=== PATIENT | female | born 1990 | race African-American/Black ===

== ENCOUNTER 2017-07-23 08:22 | Emergency (ER) | payer SELFPAY ==
[~2017-07-23] VITALS: Ht 167.6 cm; Wt 72.0 kg
[2017-07-23 08:24] VITALS: BP 105/64; PULSE 103; RESP 20; TEMP 102.7; O2SAT 99
[2017-07-23] MEDS ORDERED: DEXTLIQ (09:00)
[2017-07-23] MEDS ORDERED: IBUPROFEN 600 MG TAB PO ONE (09:15)
--- NOTE | 2017-07-23 09:30 | PD ---
HPI Chief Complaint: Fever Time Seen by Provider: 09:08 Travel History International Travel<30 days: No Contact w/Intl Traveler<30days: No Traveled to known affect area: No History of Present Illness HPI 27-year-old female came to the emergency room with history of fever, chills, body aches and cough since last night. She has brought her daughter and to be seen as well since she has symptoms of fever and cough as well. However the daughter has been sick for past 2 weeks and patient just became sick last night. She is a smoker. Patient had a temperature 102.5 in triage. She claims to be healthy otherwise. No history of nausea or vomiting. [facility] Past Medical History Narrative Medical List of her past medical, surgical, social and family history is reviewed from the nursing note. Medical History: Denies Significant Hx ?: Not LMP: 07/01/17 Past Surgical History Surgical History: No Previous Surgery Social History Alcohol Use: No Tobacco Use: No Substance Use: No Allergies-Medications (Allergen,Severity, Reaction): Coded Allergies: No Known Allergies (Unverified , 07/23/17) Comments No known drug allergies Reported Meds & Prescriptions Reported Meds & Active Scripts Active Tamiflu (Oseltamivir Phosphate) 75 Mg Cap 75 Mg PO BID 5 Days Reported Night Time Cold & Flu Liquid (Dm/Acetaminophen/Doxylamine) 15 Mg-325 Mg-6.25 Mg/ 15 Ml Liquid Narrative Medication List of her home medications reviewed from the nursing note. Review of Systems Except as stated in HPI: all other systems reviewed are Neg General / Constitutional: Positive: Fever, Chills Respiratory: Positive: Cough Musculoskeletal: Positive: Myalgias Physical Exam Narrative GENERAL: Awake, alert, moderate distress SKIN: Focused skin assessment warm/dry. HEAD: Atraumatic. Normocephalic. EYES: Pupils equal and round. No scleral icterus. No injection or drainage. ENT: No nasal bleeding or discharge. Mucous membranes pink and moist. NECK: Trachea midline. No JVD. CARDIOVASCULAR: Regular rate and rhythm. No murmur appreciated. RESPIRATORY: No accessory muscle use. Clear to auscultation. Breath sounds equal bilaterally. GASTROINTESTINAL: Abdomen soft, non-tender, nondistended. Hepatic and splenic margins not palpable. MUSCULOSKELETAL: No obvious deformities. No clubbing. No cyanosis. No edema. NEUROLOGICAL: Awake and alert. No obvious cranial nerve deficits. Motor grossly within normal limits. Normal speech. PSYCHIATRIC: Appropriate mood and affect; insight and judgment normal. Data Data Last Documented VS Vital Signs Date Time Temp Pulse Resp B/P (MAP) Pulse Ox O2 Delivery O2 Flow Rate FiO2 07/23/17 12:41 07/23/17 08:40 16 07/23/17 08:24 102.7 103 99 Orders Orders Influenzae A/B Antigen (07/23/17 09:15) Ibuprofen (Motrin) (07/23/17 09:15) Oseltamivir (Tamiflu) (07/23/17 10:30) Ed Discharge Order (07/23/17 10:31) [facility] Medical Decision Making Medical Screen Exam Complete: Yes Emergency Medical Condition: Yes Medical Record Reviewed: Yes Differential Diagnosis Influenza, viral illness Narrative Course 10:30 AM influenza a came back positive. I've given her dose of Tamiflu and she 'll be discharged. She was medicated for fever as well. Procedures EKG Prior to Arrival: No Diagnosis Primary Impression: Influenza A Referrals: Primary Care Physician Additional Instructions: Take the medication as per the prescription direction. Drink lots of fluid to keep herself hydrated. Warm tea with honey and lemon will be helpful. Return to the ER if condition worsens or any other new concerns. You can take Tylenol/ Motrin/ibuprofen/Advil for fever and or body aches. Med/Other Pt SpecificInfo: Prescription(s) given Scripts Oseltamivir (Tamiflu) 75 Mg Cap 75 MG PO BID for Mgmt Viral Infection for 5 Days, #10 CAP 0 Refills Prov: Marge Solitario MD 07/23/17 Disposition: 01 DISCHARGE HOME Condition: Stable Marge Solitario MD Jul 23, 2017 09:30
[2017-07-23] MEDS ORDERED: OSELTAMIVIR PHOSPHATE 75 MG CAP PO ONE (10:30)
[2017-07-23] MEDS ORDERED: OSEL75 PO (10:31)
== END 2017-07-23 12:56 | disposition home or self-care (01) ==
LOC: NEPE 08:22
DX: J09.X2 Influenza due to identified novel influenza A virus with other respiratory manifestations (principal); F17.200 Nicotine dependence, unspecified, uncomplicated
CPT/HCPCS: 87804; 99283